=== PATIENT | female | born 1960 | race Caucasian/White ===

== ENCOUNTER → 2016-07-30 | Outpatient (CLI) | payer BC ==
--- NOTE | 2016-07-30 13:01 | US ---
EXAMINATION TYPE: US venous doppler duplex LE RT DATE OF EXAM: 07/30/2016 12:48 PM COMPARISON: NONE CLINICAL HISTORY: M25.571 PAIN IN RT ANKLE AND JOINTS OF RT FOOT. Pain, warmness right lower leg. Rig ht Achilles tendon surgery 05/28 SIDE PERFORMED: Right VESSELS IMAGED: External Iliac Vein (EIV) Common Femoral Vein Deep Femoral Vein Greater Saphenous Vein * Femoral Vein Popliteal Vein Small Saphenous Vein * Proximal Calf Veins (* superficial vessels) TECHNOLOGIST IMPRESSION: Right Leg: No evidence of DVT Satisfactory color flow, phasicity, and compressibility seen in the right lower extremity at the abov e venous levels. IMPRESSION: No ultrasound evidence for acute DVT in the right lower extremity.
== END ==
LOC: RADUSWWP 12:14
PROVIDERS: ATTEND Orthopaedic Surgery
DX: I80.9 Phlebitis and thrombophlebitis of unspecified site (principal)

== ENCOUNTER → 2016-09-19 | Outpatient (CLI) | payer BC ==
--- NOTE | 2016-09-19 13:01 | MR ---
MR brain and orbits with and without contrast HISTORY: Migraine headaches, retrobulbar neuritis Multiplanar multisequence and postcontrast images obtained through the brain and orbits following 18 cc MultiHance IV Correlation to CT brain 16 January 2015 There is no restricted diffusion within the brain to suggest subacute ischemia. The corpus callosum, cervical medullary junction, cerebellopontine angles are within normal limits. There is a partially e mpty sella. There are normal vascular flow voids. 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 No abnormal enhancement following contrast admi nistration. Brain signal is maintained. Probable hemangioma in the left frontal calvarium axial image 24 measuring 14 mm area The orbits show motion. The globes show a somewhat oval appearance. No abnormal enhancement. There is a symmetric appearance. Extraocular muscles are unremarkable, optic nerves show a symmetric appearan ce. IMPRESSION: Nonspecific findings above. No significant abnormalities evident.
== END | disposition home or self-care (01) ==
LOC: RADMRIMAIN 08:06
PROVIDERS: ATTEND Ophthalmology
DX: H46.10 Retrobulbar neuritis, unspecified eye (principal); G43.809 Other migraine, not intractable, without status migrainosus
CPT/HCPCS: 70543; 70553; A9577

== ENCOUNTER → 2017-06-18 | Outpatient (CLI) | payer BC ==
[2017-06-18 17:16] LABS: Alternaria alternata IgE <0.10 kU/L; Birch IgE <0.10 kU/L; Cat Epith & Dander IgE <0.10 kU/L; Clam IgE <0.10 kU/L; Cockroach IgE <0.10 kU/L; Codfish IgE <0.10 kU/L; Dermato. farinae IgE <0.10 kU/L; Dog Dander IgE <0.10 kU/L; Egg White IgE <0.10 kU/L; Elm IgE <0.10 kU/L; Maple (Box Elder) IgE <0.10 kU/L; Oak IgE <0.10 kU/L; Peanut IgE <0.10 kU/L; Ragweed,Common IgE <0.10 kU/L; Red Top (Bentgrass) IgE <0.10 kU/L; Scallop IgE <0.10 kU/L; Shrimp IgE <0.10 kU/L; Soybean IgE <0.10 kU/L; Walnut IgE (Food) <0.10 kU/L
== END | disposition home or self-care (01) ==
LOC: LABWHC1 11:00
PROVIDERS: ATTEND Internal Medicine Critical Care Medicine
DX: J45.909 Unspecified asthma, uncomplicated (principal)
CPT/HCPCS: 36415; 82785; 86003

== ENCOUNTER → 2017-09-10 | Outpatient (CLI) | payer BC ==
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
== END | disposition home or self-care (01) ==
LOC: PNWHC3 11:57
PROVIDERS: ATTEND Specialist
DX: G47.33 Obstructive sleep apnea (adult) (pediatric) (principal); M54.2 Cervicalgia; M47.22 Other spondylosis with radiculopathy, cervical region; M25.511 Pain in right shoulder; J45.909 Unspecified asthma, uncomplicated; E11.9 Type 2 diabetes mellitus without complications; Z79.1 Long term (current) use of non-steroidal anti-inflammatories (NSAID); Z79.899 Other long term (current) drug therapy; Z90.49 Acquired absence of other specified parts of digestive tract; Z98.890 Other specified postprocedural states; Z79.891 Long term (current) use of opiate analgesic; Z79.84 Long term (current) use of oral hypoglycemic drugs; Z79.82 Long term (current) use of aspirin; Z79.52 Long term (current) use of systemic steroids
CPT/HCPCS: 99211

== ENCOUNTER 2017-09-12 06:18 | Day surgery (SDC) | payer BC ==
[2017-09-12 06:33] VITALS: TEMP 98
[2017-09-12] MEDS ORDERED: LIDOCAINE 1% 20 ML VIAL (10MG/ML) FOR IV START INTRADERMA ONE (06:35)
[2017-09-12] MEDS ORDERED: LACTATED RINGERS 1,000 ML IV ONE (06:36)
--- NOTE | 2017-09-12 07:22 | P.OP ---
Date of Procedure: 09/12/17 Surgeon: Hang Dodge Description of Procedure: . PROCEDURE 1. Cervical epidural steroid injection under fluoroscopic guidance, C7-T1 PREOPERATIVE DIAGNOSIS: 1. Cervical Radiculopathy 2. Cervical Degenerative Disc Disease POSTOPERATIVE DIAGNOSIS: : 1. Cervical Radiculopathy 2. Cervical Degenerative Disc Disease ANESTHESIA: Local anesthesia with 1% lidocaine and IV sedation with Versed 2 mg EBL: minimal PROCEDURE INDICATION: The patient with neck pain and radiculitis unresponsive to conservative treatment consents for procedure. She has pain in her neck bilaterally as well pain that radiates into her right arm down to her forearm on the right side. PROCEDURE DESCRIPTION / TECHNIQUE: The patient was seen and identified in the preoperative area. Risks, benefits, complications, including but not limited to infections ,bleeding , allergic reactions to the medications , failure to relieve pain and increase in pain. Alternatives were discussed with the patient , the patient agreed to proceed with the procedure and signed the consent. Patient was taken to the OR and time out was completed. The patient was placed in the prone position on the procedure table. A pillow was placed under the patients chest to increase the cervical interlaminar space. The cervical area was prepped and draped in the usual sterile fashion. Vital signs were closely monitored during the procedure. Conscious sedation was used during the procedure to decrease patients anxiety. Using anterior-posterior fluoroscopy, the C7-T1 interlaminar space was identified and the skin over this site was marked and then infiltrated with 1% lidocaine subcutaneously. Subsequently, a 20-gauge 3-1/2-inch Tuohy epidural needle was inserted and advanced toward the epidural space by means of the loss of resistance technique and guided by AP and lateral fluoroscopy. The correct needle position in the epidural space was verified in the AP and lateral projection. After negative aspiration, mixture containing 20 mg Dexamethasone and 2 ml of preservative-free normal saline injected Needle was withdrawn intact, skin was cleansed, and bandages were applied. Complications= none. Disposition= patient was placed in supine position and transferred to the recovery room area in stable condition and there was no evidence of upper or lower extremity motor or sensory deficit after the procedure patient was discharged from recovery room after discharge criteria met and home discharge instructions was given by the staff and patient will follow up for repeat of MAR in 2-4 weeks
[2017-09-12] MEDS ORDERED: IV FLUID CONTINUATION 1,000 ML IV ONE (07:46)
[2017-09-12 07:49] VITALS: RESP 16
[2017-09-12 07:55] VITALS: BP 155/76; PULSE 83
--- NOTE | 2017-09-12 09:13 | FL ---
EXAMINATION TYPE: FL guided pain mgmt statistic DATE OF EXAM: 09/12/2017 COMPARISON: NONE HISTORY: Neck pain TECHNIQUE: Fluoroscopy. FINDINGS/IMPRESSION: Fluoroscopic guidance was provided during procedure performed by Dr. Dodge. A total of 2 seconds of fluoroscopic time was utilized during the procedure and 1 spot images was acqu ired demonstrating localization of the cervical spine.
== END 2017-09-12 08:06 | disposition home or self-care (01) ==
LOC: ORPAIN 06:18
PROVIDERS: ATTEND Pain Medicine Pain Medicine
DX: G89.29 Other chronic pain (principal); M47.22 Other spondylosis with radiculopathy, cervical region; J45.909 Unspecified asthma, uncomplicated; E11.9 Type 2 diabetes mellitus without complications; Z90.49 Acquired absence of other specified parts of digestive tract; Z79.899 Other long term (current) drug therapy; Z79.82 Long term (current) use of aspirin; Z79.1 Long term (current) use of non-steroidal anti-inflammatories (NSAID); Z88.8 Allergy status to other drugs, medicaments and biological substances; Z79.84 Long term (current) use of oral hypoglycemic drugs
CPT/HCPCS: 62321; J1100

== ENCOUNTER → 2017-10-02 | Day surgery (SDC) | payer BC ==
[2017-09-26 12:11] VITALS: BMI 32.5
[~2017-10-02] MED LIST: LACTATED RINGERS 1,000 ML IV ONE; LACTATED RINGERS 1,000 ML IV SCH; LIDOCAINE 1% 20 ML VIAL (10MG/ML) FOR IV START INTRADERMA ONE
[2017-10-02 09:02] VITALS: BP 151/81; PULSE 74; RESP 16; TEMP 97.7
[2017-10-02 09:15] LABS: Glucose,Whole Blood 123 mg/dL (75-99)
--- NOTE | 2017-10-02 09:52 | P.PN ---
Progress Note - Text Progress Note Date: 10/02/17 The patient presented today for repeat of cervical epidural steroid injection. Upon further evaluation in the preoperative area, it was determined that she had significant increase in pressure and migraines which began about 4 days after her last procedure. These continued today. Although she has a long- standing history of migraines, she has not had any for 1-1/2 years. She also complains of significant pressure in her shoulder isn't well as numbness in her right hand. She does report that the pain symptoms she was having the procedure done for are better after the injection. Given the intensity of migraines that she is experiencing after this procedure as well as increase in pressure, I think it is reasonable to order a cervical spine MRI. It is been 4 years since her last evaluation. Physical examination today she demonstrates no focal motor deficits or sensory deficits.
== END ==
LOC: ORPAIN 07:04
PROVIDERS: ATTEND Pain Medicine Pain Medicine
DX: G43.909 Migraine, unspecified, not intractable, without status migrainosus (principal); Z53.8 Procedure and treatment not carried out for other reasons; M54.2 Cervicalgia

== ENCOUNTER → 2017-10-19 | Outpatient (CLI) | payer BC ==
--- NOTE | 2017-10-19 11:47 | MR ---
EXAMINATION TYPE: MR cervical spine wo con DATE OF EXAM: 10/19/2017 COMPARISON: 03/23/2014 HISTORY: Cervical radiculopathy TECHNIQUE: Multiplanar, multisequence images of the cervical spine were acquired. C2-C3: No evidence for degenerative disc disease. No disc bulge/herniation or protrusion. No Canal stenosis. Foramina are patent bilaterally. C3-C4: No evidence for degenerative disc disease. No disc bulge/herniation or protrusion. No Canal stenosis. Foramina are patent bilaterally. C4-C5: No evidence for degenerative disc disease. No disc bulge/herniation or protrusion. No Canal stenosis. Foramina are patent bilaterally. C5-C6: No canal stenosis or foraminal encroachment. Very minimal central and right paracentral disc b ulging. No spinal cord contact. C6-C7: Broad-based central disc bulging with mild to moderate thecal sac compression is stable. No fo raminal encroachment. No Canal stenosis. C7-T1: No evidence for degenerative disc disease. No disc bulge/herniation or protrusion. No Canal stenosis. Foramina are patent bilaterally. Cervical segments are intact. There is normal alignment. Cervical spinal cord is of normal signal. Craniovertebral junction relationships are within normal limits. IMPRESSION: 1. Multilevel mild degenerative disc disease. Disc bulging previously noted at C6/C7 appears less imp ressive on today's exam mild to moderate effacement of thecal sac but no spinal cord contact.
== END | disposition home or self-care (01) ==
LOC: RADMRIMAIN 09:01
PROVIDERS: ATTEND Pain Medicine Pain Medicine
DX: M50.10 Cervical disc disorder with radiculopathy, unspecified cervical region (principal)
CPT/HCPCS: 72141

== ENCOUNTER → 2017-11-25 | Outpatient (CLI) | payer BC ==
[2017-11-25 13:36] VITALS: BP 170/79; PULSE 91; RESP 18
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
== END | disposition home or self-care (01) ==
LOC: PNWHC3 12:08
PROVIDERS: ATTEND Anesthesiology
DX: G89.29 Other chronic pain (principal); M54.2 Cervicalgia
CPT/HCPCS: 99211

== ENCOUNTER → 2018-03-12 | Outpatient (CLI) | payer BC ==
--- NOTE | 2018-03-14 10:12 | MM ---
Reason for exam: screening (asymptomatic). Last mammogram was performed 3 years and 5 months ago. History: Patient is postmenopausal. Taking estrogen for 1 year 6 months. Physical Findings: A clinical breast exam by your physician is recommended on an annual basis and results should be correlated with mammographic findings. MG 3D Screening Mammo W/Cad Bilateral CC and MLO view(s) were taken. Prior study comparison: October 11, 2014, bilateral MG screening mammo w CAD. September 15, 2013, mammogram, performed at [facility]. There are scattered fibroglandular densities. Focal asymmetry. This finding is changed when compared with previous exams. ASSESSMENT: Incomplete: need additional imaging evaluation, BI-RAD 0 RECOMMENDATION: Special view mammogram of the left breast. If lesion persists on supplemental views, image directed ultrasound is recommended. [facility] will attempt to contact patient to return for supplemental views and ultrasound if indicated.
== END | disposition home or self-care (01) ==
LOC: RADMAMWWP 16:04
PROVIDERS: ATTEND Family Medicine
DX: Z12.31 Encounter for screening mammogram for malignant neoplasm of breast (principal)
CPT/HCPCS: 77063; 77067

== ENCOUNTER → 2018-03-18 | Outpatient (CLI) | payer BC ==
--- NOTE | 2018-03-19 08:01 | MM ---
Reason for exam: additional evaluation requested from abnormal screening. Last mammogram was performed less than 1 month ago. History: Patient is postmenopausal. Took estrogen for 3 years beginning at age 45. Physical Findings: Nurse did not find any significant physical abnormalities on exam. MG 3D Work Up W/Cad LT CC and MLO view(s) were taken of the left breast. Prior study comparison: March 12, 2018, bilateral MG 3d screening mammo w/cad. October 11, 2014, bilateral MG screening mammo w CAD. The breast tissue is heterogeneously dense. This may lower the sensitivity of mammography. There is no discrete abnormality. These results were verbally communicated with the patient and result sheet given to the patient on 03/18/18. ASSESSMENT: Probably benign, BI-RAD 3 RECOMMENDATION: Follow-up diagnostic mammogram of the left breast in 6 months.
== END | disposition home or self-care (01) ==
LOC: RADMAMWWP 14:54
PROVIDERS: ATTEND Family Medicine
DX: R92.8 Other abnormal and inconclusive findings on diagnostic imaging of breast (principal)
CPT/HCPCS: 77061; 77065

== ENCOUNTER 2019-02-19 19:39 | Emergency (ER) | payer BC ==
[2019-02-19] MEDS ORDERED: TOPICAL SKIN ADHESIVE 1 EACH AMP TOPICAL ONE (21:00)
--- NOTE | 2019-02-19 21:48 | ED ---
General Adult HPI - General Chief complaint: Extremity Problem,Nontraumatic Stated complaint: LEFT LEG BLEEDING, BROKEN VEIN Time Seen by Provider: 02/19/19 21:00 Source: patient Mode of arrival: ambulatory Limitations: no limitations - History of Present Illness Initial comments: 58-year-old female patient presents to the emergency department today for evaluation of bleeding vessel to the left lower leg. Patient states she was standing in the bathroom when she noticed her foot was wet, she looked down and was standing in a pool of blood. Patient noticed any vessel from the lower posterior left leg was bleeding. States she did hold pressure was able to get the bleeding to stop. She is concerned the bleeding may start again and so she presented here for further evaluation. She denies any injury to the leg. States she does have some varicose veins. She denies any use of anticoagulants or antiplatelet medications. States that she felt as though she lost quite a bit of blood. She denies any weakness or dizziness. Patient denies any recent rash, fever, chills, shortness breath, chest pain, abdominal pain, nausea, vomiting, diarrhea, constipation, back pain, numbness, tingling, hematuria, dysuria, urinary urgency, urinary frequency, headache, visual changes, or any other complaints. - Related Data Home Medications Medication Instructions Recorded Confirmed Atorvastatin [Lipitor] 10 mg PO HS 02/28/14 02/19/19 Lansoprazole [Prevacid] 30 mg PO AC-SUPPER 09/10/17 02/19/19 DULoxetine HCL [Cymbalta] 90 mg PO AC-SUPPER 11/25/17 02/19/19 Levothyroxine Sodium [Synthroid] 137 mcg PO DAILY 11/25/17 02/19/19 cloNIDine HCL [Catapres] 0.1 mg PO HS 02/19/19 02/19/19 Allergies Allergy/AdvReac Type Severity Reaction Status Date / Time IV steroids AdvReac TOOK Uncoded 02/19/19 20:58 PROTIEN OUT OF BODY Review of Systems ROS Statement: Those systems with pertinent positive or pertinent negative responses have been documented in the HPI. ROS Other: All systems not noted in ROS Statement are negative. Past Medical History Past Medical History: Asthma, Fibromyalgia, GERD/Reflux, Thyroid Disorder History of Any Multi-Drug Resistant Organisms: None Reported Past Surgical History: Cholecystectomy, Hysterectomy, Orthopedic Surgery, Tonsillectomy Additional Past Surgical History / Comment(s): RT FOOT SX. PAIN CLINIC PROCEDURES. RT KNEE SCOPE. COLONOSCOPY Past Anesthesia/Blood Transfusion Reactions: No Reported Reaction Past Psychological History: No Psychological Hx Reported Smoking Status: Never smoker Past Alcohol Use History: None Reported Past Drug Use History: None Reported - Past Family History Father Family Medical History: Cancer Brother(s) Family Medical History: Cancer General Exam Limitations: no limitations General appearance: alert, in no apparent distress, other (Physical well- developed, well-nourished adult female patient in no acute distress. Vital signs upon presentation are temperature 98.5F, pulse 1:30, respirations 16, blood pressure 114/74, pulse ox 98% on room air.) Respiratory exam: Present: normal lung sounds bilaterally. Absent: respiratory distress, wheezes, rales, rhonchi, stridor Cardiovascular Exam: Present: regular rate, normal rhythm, normal heart sounds. Absent: systolic murmur, diastolic murmur, rubs, gallop, clicks Extremities exam: Present: full ROM, normal capillary refill, other (There is small scabbed vessel noted to the left lower posterior leg. No active bleeding. Surrounding tissue is pink, warm, dry. Cap refills less than 3 seconds. ). Absent: normal inspection, tenderness, pedal edema, joint swelling, calf tenderness Neurological exam: Present: alert, oriented X3, CN II-XII intact Psychiatric exam: Present: normal affect, normal mood Skin exam: Present: warm, dry, intact, normal color. Absent: rash Course Vital Signs 02/19/19 02/19/19 19:41 22:00 Temperature 98.5 F 98.4 F Pulse Rate 130 H 103 H Respiratory 16 20 Rate Blood Pressure 114/74 117/86 O2 Sat by Pulse 98 99 Oximetry Procedures - Laceration Laceration #1 Indication: other (Bleeding varicose vein) Site: lower extremity (left) Type of Sutures: other (exofin skin adhesive) Patient Tolerated Procedure: well, no complications Medical Decision Making - Medical Decision Making 58 year-old female patient presented to the emergency department today for evaluation of bleeding vessel to the left lower leg. Physical examination did reveal scabbed lesions to the left posterior lower leg. Did cleanse the area and cover with exofin skin adhesive to prevent rebleeding. Patient be discharged. Her primary care physician for recheck in 1-2 days. Return parameters discussed in detail. She verbalizes understanding and agrees with this plan. Disposition Clinical Impression: Bleeding from varicose vein Disposition: HOME SELF-CARE Condition: Good Instructions (If sedation given, give patient instructions): Skin Adhesive Care (ED) Additional Instructions: Do not pick or pull at glue. Do not apply oil based ointment or soaps. Monitor for further bleeding, if it starts hold pressure for at least 20 minutes. Follow up with your primary care physician for further evaluation in 1-2 days. Return to the emergency department for any new, worsening, or concerning symptoms. Is patient prescribed a controlled substance at d/c from ED?: No Referrals: Isabelle Ferrell DO [Primary Care Provider] - 1-2 days Time of Disposition: 21:48
[2019-02-19 22:01] VITALS: BP 117/86; PULSE 103; RESP 20; TEMP 98.4
== END 2019-02-19 22:01 | disposition home or self-care (01) ==
LOC: EC 19:39
DX: I83.892 Varicose veins of left lower extremity with other complications (principal); E07.9 Disorder of thyroid, unspecified; M79.7 Fibromyalgia; Z79.890 Hormone replacement therapy; Z79.899 Other long term (current) drug therapy; Z98.890 Other specified postprocedural states; Z88.8 Allergy status to other drugs, medicaments and biological substances
CPT/HCPCS: 12001; 99283

== ENCOUNTER 2019-02-23 08:18 | Emergency (ER) | payer BC ==
[2019-02-23] MEDS ORDERED: MORPHINE SULFATE 4 MG/ML SYRINGE IM STA (08:36)
[2019-02-23] MEDS ORDERED: LIDOCAINE 1%-EPI 1:100,000 20 ML VIAL SQ STA (08:36)
--- NOTE | 2019-02-23 08:40 | ED ---
General Adult HPI - General Chief complaint: Recheck/Abnormal Lab/Rx Stated complaint: POSS INFECTION LEFT LEG Time Seen by Provider: 02/23/19 08:25 Source: patient Mode of arrival: ambulatory Limitations: no limitations - History of Present Illness Initial comments: The patient is a 58-year-old female who was recently seen in the emergency department for a ruptured varicose vein. On the patient reports that she had a varicose vein that ruptured at home in her bathroom. There was significant amount of bleeding from the site. She came into the emergency department and had Dermabond placed over the top of it. She reports that since then she has had a "bubble" that has formed on her left lower posterior calf. It is increasing in size by the day. The surrounding tissue is warm to touch. She takes Ultram at home as needed for pain control and states this has not been touching her pain. She denies any fevers or chills. No nausea or vomiting. There is some mild swelling of the ankle. Patient is not on any blood thinners. No history of DVT or PE. No recent travel or surgery. No exogenous hormone use. Denies trauma to the site. There are no other alleviating, precipitating or modifying factors - Related Data Home Medications Medication Instructions Recorded Confirmed Lansoprazole [Prevacid] 30 mg PO BID 09/10/17 02/23/19 DULoxetine HCL [Cymbalta] 30 mg PO TID 11/25/17 02/23/19 Levothyroxine Sodium [Synthroid] 137 mcg PO DAILY 11/25/17 02/23/19 cloNIDine HCL [Catapres] 0.1 mg PO HS 02/19/19 02/23/19 Atorvastatin [Lipitor] 10 mg PO HS 02/23/19 02/23/19 Sennosides/Docusate Sodium 1 tab PO BID PRN 02/23/19 02/23/19 [Senna-S Laxative Tablet] Terbinafine [LamISIL] 250 mg PO DAILY 02/23/19 02/23/19 traMADol HCL [Ultram] 50 mg PO BID PRN 02/23/19 02/23/19 Previous Rx's Medication Instructions Recorded Cephalexin [Keflex] 500 mg PO Q6HR #28 cap 02/23/19 Fluconazole [Diflucan] 150 mg PO ONCE #3 tab 02/23/19 Sulfamethox-Tmp 800-160Mg [Bactrim 2 tab PO Q12HR #28 tab 02/23/19 Ds] Allergies Allergy/AdvReac Type Severity Reaction Status Date / Time IV steroids AdvReac TOOK Uncoded 02/23/19 08:56 PROTIEN OUT OF BODY Review of Systems ROS Statement: Those systems with pertinent positive or pertinent negative responses have been documented in the HPI. ROS Other: All systems not noted in ROS Statement are negative. Past Medical History Past Medical History: Asthma, Fibromyalgia, GERD/Reflux, Thyroid Disorder History of Any Multi-Drug Resistant Organisms: None Reported Past Surgical History: Cholecystectomy, Hysterectomy, Orthopedic Surgery, Tonsillectomy Additional Past Surgical History / Comment(s): RT FOOT SX. PAIN CLINIC PROCEDURES. RT KNEE SCOPE. COLONOSCOPY Past Anesthesia/Blood Transfusion Reactions: No Reported Reaction Past Psychological History: No Psychological Hx Reported Smoking Status: Never smoker Past Alcohol Use History: None Reported Past Drug Use History: None Reported - Past Family History Father Family Medical History: Cancer Brother(s) Family Medical History: Cancer General Exam Limitations: no limitations General appearance: alert, in no apparent distress Respiratory exam: Present: normal lung sounds bilaterally. Absent: respiratory distress, wheezes, rales, rhonchi Cardiovascular Exam: Present: regular rate, normal rhythm Course Vital Signs 02/23/19 02/23/19 08:22 09:29 Temperature 98.2 F 98.6 F Pulse Rate 94 70 Respiratory 20 18 Rate Blood Pressure 126/68 120/82 O2 Sat by Pulse 98 100 Oximetry Medical Decision Making - Medical Decision Making Upon arrival the patient is placed in room 4. A thorough history and physical exam was obtained. Examination of the patient's posterior calf does reveal an area of fluctuance with surrounding induration. I did recommend draining the lesion as I do believe it is filled with pus. The patient does agree to this. I did use approximately 4 mL of 1% lidocaine with epinephrine and injected it in the subcutaneous tissues. Adequate analgesia was obtained. I then used in [address] a small cut into the fluctuant area skin. I drained approximately 5 mL of purulent drainage. Gauze was placed over the site wrapped in Kerlix. I did recommend treating the patient for cellulitis for which he did agree. I will place the patient on Keflex and Bactrim. She is given follow-up information from the wound center. Culture was obtained and sent to the lab. She must follow-up with her primary care physician within 2-4 days. If there are any new or worsening symptoms she should return to the emergency room. The patient was then discharged home in stable condition Disposition Clinical Impression: Bleeding from varicose vein, Abscess Disposition: HOME SELF-CARE Instructions (If sedation given, give patient instructions): Abscess Incision and Drainage (ED), Abscess (ED) Additional Instructions: Please follow-up with the wound care clinic and your primary care physician for reevaluation of your wound. Return to the emergency department if you have any new or worsening symptoms Prescriptions: Sulfamethox-Tmp 800-160Mg [Bactrim Ds] 2 tab PO Q12HR #28 tab Fluconazole [Diflucan] 150 mg PO ONCE #3 tab Cephalexin [Keflex] 500 mg PO Q6HR #28 cap Is patient prescribed a controlled substance at d/c from ED?: No Referrals: Isabelle Ferrell DO [Primary Care Provider] - 1-2 days [facility] [NON-STAFF] - 1-2 days Time of Disposition: 09:16
[2019-02-23 09:32] VITALS: BP 120/82; PULSE 70; RESP 18; TEMP 98.6
== END 2019-02-23 09:31 | disposition home or self-care (01) ==
LOC: EC 08:18
DX: L02.416 Cutaneous abscess of left lower limb (principal); I83.892 Varicose veins of left lower extremity with other complications; K21.9 Gastro-esophageal reflux disease without esophagitis; M79.7 Fibromyalgia; E07.9 Disorder of thyroid, unspecified; Z90.49 Acquired absence of other specified parts of digestive tract; Z90.710 Acquired absence of both cervix and uterus; Z98.890 Other specified postprocedural states; Z79.890 Hormone replacement therapy; Z79.899 Other long term (current) drug therapy; Z88.8 Allergy status to other drugs, medicaments and biological substances
CPT/HCPCS: 87070; 87205; 87077; 87186; 99283; 10060; 96372; J2270

== ENCOUNTER 2019-03-01 13:30 | Observation (INO) | payer BC ==
[2019-03-01] MEDS ORDERED: SODIUM CHLORIDE 0.9% 500 ML 500 ML IV STA (13:51)
[2019-03-01] MEDS ORDERED: ONDANSETRON 4 MG/2 ML VIAL IVP STA (13:51)
[2019-03-01 13:56] LABS: Glucose,Whole Blood 141 mg/dL (75-99)
--- NOTE | 2019-03-01 14:00 | ED ---
General Adult HPI - General Chief complaint: Neuro Symptoms/Deficit Stated complaint: Vomiting, rt hand numbess Time Seen by Provider: 03/01/19 13:40 Source: patient Mode of arrival: wheelchair Limitations: no limitations - History of Present Illness Initial comments: Dictation was produced using [employer] dictation software. please excuse any grammatical, word or spelling errors. Chief Complaint: 58-year-old female presents with left facial paresthesias and left upper extremity paresthesias since 11 AM. History of Present Illness: Patient is a 58-year-old female she has past medical history of fibromyalgia, hypertension and asthma. Patient states she is had acute strokelike symptoms since 11 AM. Patient was at work when she began experiencing left facial left upper extremity numbness. Proximal to 1 week ago patient was bit by a spider. She was seen at the wound center and is being treated for possible brown recluse spider bite. She was recently started on Bactrim. She has no other medication changes. She does have a history of fibromyalgia. Patient complains of paresthesias to the left upper face or left lower face and left upper extremity. She does not feel weak. Patient also feels nauseous. She denies any abdominal pain or chest pain. Patient states she's had Bactrim before without any adverse reactions. Patient has a history of stroke or TIA. She states that the paresthesias to her left upper extremity extending from her fingers to her elbow circumferentially. The ROS documented in this emergency department record has been reviewed and confirmed by me. Those systems with pertinent positive or negative responses have been documented in the HPI. All other systems are other negative and/or noncontributory. PHYSICAL EXAM: General Impression: Alert and oriented x3, not in acute distress HEENT: Normocephalic atraumatic, extra-ocular movements intact, pupils equal and reactive to light bilaterally, mucous membranes moist. Cardiovascular: Heart regular rate and rhythm, S1&S2 audible, no murmurs, rubs or gallops Chest: Lungs clear to auscultation bilaterally, no rhonchi, no wheeze, no rales Abdomen: Bowel sounds present, abdomen soft, non-tender, non-distended, no organomegaly Musculoskeletal: Pulses present and equal in all extremities, no peripheral edema Motor: no focal deficits noted Neurological: CN II-XII grossly intact, no focal motor or sensory deficits noted , abnormal sensation to light touch of the left upper extremity extending from the fingers to the elbow region, left upper face left lower face. No aphasia. NIH of 2 Skin: Intact with no visualized rashes Psych: Normal affect and mood ED course:58-year-old female presents with strokelike symptoms since 11 AM. Eric stroke was paged. Patient's given a NIH of 2 for the paresthesias in the face in the upper extremity. Vital signs upon arrival are within acceptable limits. Discussed patient case with Dr. Yan arias stroke doctor recommends no TPA at this time.Laboratory evaluation obtained. CBC, coag panel, metabolic panels obtained. Patient has anion gap acidosis with potassium 3.1. Is unclear what this acidosis is from. Medications were reviewed with no overt cause. Patient has been vomiting. Is concerned that maybe this is from starvation acidosis versus acid loss from emesis. Rest metabolic panel is grossly unremarkable. Computed tomography scan of the brain and brain CT is unremarkable. X-rays unremarkable Patient given aspirin. Discussed patient case with Dr. Carrillo was went except patient care. Neurology is not available currently. However per request by Dr. Carrillo a message was sent to neurologist will be working tomorrow Dr. Piña. Patient clinically stable she reports improvement of her symptoms while being in the hospital. I feel there is no indication for patient to be transferred to facility where there is currently neurologist given that we will have neurology coverage tomorrow. EKG interpretation: Ventricular rate 105, sinus tachycardia, NJ interval 132, care is 92, QTc 465. No NJ prolongation, no QTC prolongation, no ST or T-wave changes noted. . Overall, this EKG is unremarkable - Related Data Home Medications Medication Instructions Recorded Confirmed Lansoprazole [Prevacid] 30 mg PO BID 09/10/17 03/01/19 DULoxetine HCL [Cymbalta] 30 mg PO TID 11/25/17 03/01/19 Levothyroxine Sodium [Synthroid] 137 mcg PO DAILY 11/25/17 03/01/19 cloNIDine HCL [Catapres] 0.1 mg PO HS 02/19/19 03/01/19 Terbinafine [LamISIL] 250 mg PO DAILY 02/23/19 03/01/19 traMADol HCL [Ultram] 50 mg PO BID PRN 02/23/19 03/01/19 Atorvastatin [Lipitor] 40 mg PO HS 03/01/19 03/01/19 Previous Rx's Medication Instructions Recorded Sulfamethox-Tmp 800-160Mg [Bactrim 2 tab PO Q12HR #28 tab 02/23/19 Ds] Allergies Allergy/AdvReac Type Severity Reaction Status Date / Time IV steroids AdvReac TOOK Uncoded 03/01/19 13:55 PROTIEN OUT OF BODY Review of Systems ROS Statement: Those systems with pertinent positive or pertinent negative responses have been documented in the HPI. ROS Other: All systems not noted in ROS Statement are negative. Past Medical History Past Medical History: Asthma, Fibromyalgia, GERD/Reflux, Thyroid Disorder History of Any Multi-Drug Resistant Organisms: None Reported Past Surgical History: Cholecystectomy, Hysterectomy, Orthopedic Surgery, Tonsillectomy Additional Past Surgical History / Comment(s): RT FOOT SX. PAIN CLINIC PROCEDURES. RT KNEE SCOPE. COLONOSCOPY Past Anesthesia/Blood Transfusion Reactions: No Reported Reaction Past Psychological History: No Psychological Hx Reported Smoking Status: Never smoker Past Alcohol Use History: None Reported Past Drug Use History: None Reported - Past Family History Father Family Medical History: Cancer Brother(s) Family Medical History: Cancer General Exam Limitations: no limitations Course Vital Signs 03/01/19 03/01/19 03/01/19 13:36 13:50 14:05 Temperature 97.5 F L 97.8 F 97.9 F Pulse Rate 98 101 H 96 Respiratory 16 22 18 Rate Blood Pressure 100/58 129/58 123/63 O2 Sat by Pulse 100 99 100 Oximetry 03/01/19 03/01/19 14:20 14:35 Temperature 97.7 F 97.9 F Pulse Rate 93 95 Respiratory 18 18 Rate Blood Pressure 125/65 121/61 O2 Sat by Pulse 100 100 Oximetry Medical Decision Making - Lab Data Result diagrams: 03/01/19 13:50 03/01/19 13:50 Lab Results 03/01/19 03/01/19 03/01/19 Range/Units 13:50 13:50 13:50 WBC 8.5 (3.8-10.6) k/uL RBC 3.85 (3.80-5.40) m/uL Hgb 12.1 (11.4-16.0) gm/dL Hct 34.8 (34.0-46.0) % MCV 90.5 (80.0-100.0) fL MCH 31.5 (25.0-35.0) pg MCHC 34.8 (31.0-37.0) g/dL RDW 13.3 (11.5-15.5) % Plt Count 392 (150-450) k/uL Neutrophils % 76 % Lymphocytes % 14 % Monocytes % 5 % Eosinophils % 1 % Basophils % 1 % Neutrophils # 6.4 (1.3-7.7) k/uL Lymphocytes # 1.2 (1.0-4.8) k/uL Monocytes # 0.4 (0-1.0) k/uL Eosinophils # 0.1 (0-0.7) k/uL Basophils # 0.1 (0-0.2) k/uL PT (9.0-12.0) sec INR (<1.2) APTT (22.0-30.0) sec Sodium 141 (137-145) mmol/L Potassium 3.1 L (3.5-5.1) mmol/L Chloride 105 (98-107) mmol/L Carbon Dioxide 16 L (22-30) mmol/L Anion Gap 20 mmol/L BUN 10 (7-17) mg/dL Creatinine 1.01 (0.52-1.04) mg/dL Est GFR (CKD-EPI)AfAm 71 (>60 ml/min/1.73 sqM) Est GFR (CKD-EPI)NonAf 61 (>60 ml/min/1.73 sqM) Glucose 141 H (74-99) mg/dL POC Glucose (mg/dL) (75-99) mg/dL POC Glu Assistant Front Desk Manager ID Calcium 10.0 (8.4-10.2) mg/dL Total Bilirubin 0.5 (0.2-1.3) mg/dL AST 28 (14-36) U/L ALT 31 (9-52) U/L Alkaline Phosphatase 167 H (38-126) U/L Total Creatine Kinase 92 (30-135) U/L CK-MB (CK-2) 2.8 H (0.0-2.4) ng/mL CK-MB (CK-2) Rel Index 3.0 Troponin I <0.012 (0.000-0.034) ng/mL Total Protein 7.2 (6.3-8.2) g/dL Albumin 4.4 (3.5-5.0) g/dL 03/01/19 03/01/19 Range/Units 13:50 13:54 WBC (3.8-10.6) k/uL RBC (3.80-5.40) m/uL Hgb (11.4-16.0) gm/dL Hct (34.0-46.0) % MCV (80.0-100.0) fL MCH (25.0-35.0) pg MCHC (31.0-37.0) g/dL RDW (11.5-15.5) % Plt Count (150-450) k/uL Neutrophils % % Lymphocytes % % Monocytes % % Eosinophils % % Basophils % % Neutrophils # (1.3-7.7) k/uL Lymphocytes # (1.0-4.8) k/uL Monocytes # (0-1.0) k/uL Eosinophils # (0-0.7) k/uL Basophils # (0-0.2) k/uL PT 9.6 (9.0-12.0) sec INR 0.9 (<1.2) APTT 22.6 (22.0-30.0) sec Sodium (137-145) mmol/L Potassium (3.5-5.1) mmol/L Chloride (98-107) mmol/L Carbon Dioxide (22-30) mmol/L Anion Gap mmol/L BUN (7-17) mg/dL Creatinine (0.52-1.04) mg/dL Est GFR (CKD-EPI)AfAm (>60 ml/min/1.73 sqM) Est GFR (CKD-EPI)NonAf (>60 ml/min/1.73 sqM) Glucose (74-99) mg/dL POC Glucose (mg/dL) 141 H (75-99) mg/dL POC Glu Assistant Front Desk Manager ID Juliet Sutton Calcium (8.4-10.2) mg/dL Total Bilirubin (0.2-1.3) mg/dL AST (14-36) U/L ALT (9-52) U/L Alkaline Phosphatase (38-126) U/L Total Creatine Kinase (30-135) U/L CK-MB (CK-2) (0.0-2.4) ng/mL CK-MB (CK-2) Rel Index Troponin I (0.000-0.034) ng/mL Total Protein (6.3-8.2) g/dL Albumin (3.5-5.0) g/dL Disposition Clinical Impression: Transient cerebral ischemia Disposition: ADMITTED IP TO THIS HOSP Condition: Fair Referrals: Isabelle Ferrell DO [Primary Care Provider] - 1-2 days Decision Time: 15:30
[2019-03-01 14:03] LABS: Basophils # (A) 0.1 k/uL (0-0.2); Basophils % (A) 1 %; Eosinophils # (A) 0.1 k/uL (0-0.7); Eosinophils % (A) 1 %; HCT 34.8 % (34.0-46.0); HGB 12.1 gm/dL (11.4-16.0); Lymphocytes # (A) 1.2 k/uL (1.0-4.8); Lymphocytes % (A) 14 %; MCH 31.5 pg (25.0-35.0); MCHC 34.8 g/dL (31.0-37.0); MCV 90.5 fL (80.0-100.0); Mean Platelet Volume 5.9; Monocytes # (A) 0.4 k/uL (0-1.0); Monocytes % (A) 5 %; Neutrophils # (A) 6.4 k/uL (1.3-7.7); Neutrophils % (A) 76 %; Platelet Count 392 k/uL (150-450); RBC 3.85 m/uL (3.80-5.40); RDW 13.3 % (11.5-15.5); WBC 8.5 k/uL (3.8-10.6)
[2019-03-01 14:12] LABS: Albumin 4.4 g/dL (3.5-5.0); Potassium 3.1 mmol/L (3.5-5.1); Total Bilirubin 0.5 mg/dL (0.2-1.3); Total Protein 7.2 g/dL (6.3-8.2)
[2019-03-01 14:15] LABS: INR 0.9 (<1.2); Partial Thromboplastin Time 22.6 sec (22.0-30.0); Prothrombin Time 9.6 sec (9.0-12.0)
--- NOTE | 2019-03-01 14:21 | CT ---
EXAMINATION TYPE: CT brain wo con for TPA DATE OF EXAM: 03/01/2019 COMPARISON: 01/16/2015 HISTORY: Neuro deficits. Tingling and numbness CT DLP: mGycm Automated exposure control for dose reduction was used. FINDINGS: Ventricles and sulci appear normal. There is no mass effect nor midline shift. There is no sign of in tracranial hemorrhage. Calvarium is intact. There is no evidence of cerebral edema. IMPRESSION: NEGATIVE CT SCAN OF THE BRAIN. NO CHANGE.
[2019-03-01 14:22] LABS: Creatine Kinase 92 U/L (30-135)
[2019-03-01 14:36] LABS: Creatine Kinase MB 2.8 ng/mL (0.0-2.4); Troponin I <0.012 ng/mL (0.000-0.034)
--- NOTE | 2019-03-01 14:41 | CT ---
EXAMINATION TYPE: CT angio head neck DATE OF EXAM: 03/01/2019 HISTORY: Tingling/numbness in left side body COMPARISON: None CT DLP: 578.5 mGycm. Automated Exposure Control for Dose Reduction was Utilized. TECHNIQUE: CTA scan of the neck is performed with IV Contrast, patient injected with 65 mL of Isovue 370, axial images are obtained, coronal and sagittal reformatted images are reviewed. Three-D recons tructed images are created on an independent workstation and reviewed. FINDINGS: There is normal branching pattern of the great vessels on the aortic arch. There is bilateral arteria l flow in the subclavian arteries. There is thyroid gland atrophy. There is arterial flow in the common internal and external carotid arteries bilaterally. There is art erial flow in both vertebral arteries. There is wide patency of the carotid artery bifurcations. Ther e is no evidence of hemodynamic stenosis. There is no evidence of carotid or vertebral artery aneurys m or dissection. There is arterial flow in the anterior middle and posterior cerebral arteries. There is arterial flow in the vertebrobasilar artery system. There is no evidence of intracranial arterial stenosis. There is no mass effect. There is no sign of aneurysm or neovascularity. There is normal contrast opacifica tion of the venous sinuses. IMPRESSION: Normal CT angiogram of the brain. Normal CT angiogram of the neck.
[2019-03-01] MEDS ORDERED: ASPIRIN 81 MG PO STA (14:43)
[2019-03-01] MEDS ORDERED: ASPIRIN 325 MG TAB PO STA (15:20)
--- NOTE | 2019-03-01 15:24 | XR ---
EXAMINATION TYPE: XR chest 2V DATE OF EXAM: 03/01/2019 COMPARISON: 06/18/2017 HISTORY: Dizziness TECHNIQUE: Frontal and lateral views of the chest are obtained. FINDINGS: There is no heart failure nor confluent pneumonic infiltrate. Costophrenic angles are page r. There are chest leads. Bony thorax is intact. IMPRESSION: No active cardiopulmonary disease. No change.
[2019-03-01] MEDS: POTASSIUM CHLORIDE 10 MEQ in WATER FOR INJECTION 1 100ML.BAG IVPB SCH ×4 (15:29→18:53)
[2019-03-01] MEDS: SODIUM CHLORIDE 0.9% 1,000 ML IV SCH (15:31)
[2019-03-01 16:56] VITALS: RESP 16
[2019-03-01] MEDS ORDERED: traMADol 50 MG TAB PO PRN (17:16)
[2019-03-01] MEDS ORDERED: Magnesium Replacement Protocol 1 EACH MISC MISCELLANE PRN (17:17)
[2019-03-01] MEDS ORDERED: Potassium Replacement Protocol 1 EACH MISC MISCELLANE PRN (17:17)
[2019-03-01 17:18] LABS: VBG PH 7.36 (7.31-7.41)
[2019-03-01] MEDS ORDERED: HYDROcodone/APAP 5-325MG 1 EACH TAB PO PRN (17:18)
[2019-03-01] MEDS ORDERED: ACETAMINOPHEN TAB 500 MG TAB PO PRN (17:18)
[2019-03-01] MEDS ORDERED: ALPRAZolam 0.25 MG TAB PO PRN (17:18)
[2019-03-01] MEDS: DULoxetine HCL 30 MG CAPSULE.DR PO SCH ×2 (17:51→20:24)
[2019-03-01] MEDS: PANTOPRAZOLE 40 MG/10 ML VIAL IVP SCH (18:00)
[2019-03-01] MEDS: HEPARIN SODIUM,PORCINE 5,000 UNIT/ML 1 ML VIAL SQ SCH (20:24)
[2019-03-01] MEDS: SULFAMETHOX-TMP 800-160MG 1 EACH TAB PO SCH (20:24)
[2019-03-01] MEDS ORDERED: cloNIDine HCL 0.1 MG TAB PO SCH (21:00)
[2019-03-01] MEDS ORDERED: NON FORMULARY DRUG (Lansoprazole [Prevacid] 30 MG) PO SCH (21:00)
[2019-03-01] MEDS ORDERED: ATORVASTATIN 40 MG TAB PO SCH (21:00)
[2019-03-01] MEDS ORDERED: FAMOTIDINE 20 MG TAB PO SCH (21:00)
--- NOTE | 2019-03-01 22:03 | HP ---
HISTORY AND PHYSICAL DATE OF SERVICE: 03/01/2019 CHIEF COMPLAINT: Tingling and numbness of the left hand and face. HISTORY OF PRESENT ILLNESS: This 58-year-old woman with a past medical history of multiple medical problems including asthma, fibromyalgia, GERD, hypothyroidism, cholecystectomy, history of mild intermittent asthma, being followed by Dr. 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 The patient spiders but apparently the patient has been treated for a brown recluse spider bite on the posterior part of the left leg in the wound care center and the patient was recently started on Bactrim also. Today the patient is complaining of numbness and tingling starting in the left arm and subsequently spreading to the face and patient came to [facility] and admitted to the hospital for further evaluation. Patient also had an episode of vomiting also. There is no history of fever, rigors or chills. No history of headache, loss of consciousness or seizures at this time. Patient also has history of varicose veins as well. PAST MEDICAL HISTORY: History of asthma, fibromyalgia, GERD, hypothyroidism, cholecystectomy. MEDICATIONS: Prior to admission include home medications are: 1. Ultram 50 mg b.i.d. p.r.n. 2. Catapres 0.1 p.o. q.h.s. 3. Lipitor 40 mg q.h.s. 4. Lamisil 250 mg p.o. daily. 5. Bactrim DS 1 p.o. b.i.d. 6. Synthroid 137 mcg p.o. daily. 7. Prevacid 30 mg p.o. b.i.d. 8. Cymbalta 30 mg p.o. t.i.d. ALLERGIES: IV STEROIDS. FAMILY HISTORY: History of cancer in the family. SOCIAL HISTORY: No history of smoking. No history of alcohol intake. REVIEW OF SYSTEMS: ENT: Mentioned earlier. Cardiovascular no angina or palpitations. Respiration no cough or hemoptysis. GI no nausea or vomiting. no dysuria. CENTRAL NERVOUS SYSTEM: As mentioned earlier. ALLERGY/IMMUNOLOGY: No asthma or hayfever. MUSCULOSKELETAL as mentioned earlier. HEMATOLOGY/ONCOLOGY: No history of anemia. ENDOCRINE: Hypothyroidism. CONSTITUTIONAL: As mentioned earlier. DERMATOLOGY: Negative. RHEUMATOLOGY: Negative. PSYCHIATRIC: As mentioned earlier. PHYSICAL EXAMINATION: Alert and oriented times three. Pulse 91, blood pressure 120/60. Respirations 16. Temperature 98.1. Pulse ox 100 percent on 3 L. HEENT: Conjunctivae normal. Oral mucosa moist. NECK is no jugular venous distention. No carotid bruit. No lymph node enlargement. Cardiovascular system: S1, S2. No S3, no S4. RESPIRATIONS: Breath sounds diminished in the bases. No rhonchi. No crackles. ABDOMEN: Soft, nontender. No mass palpable. LEGS: Multiple varicose veins present status post Achilles tendon surgery on the right leg. Otherwise, spider bite and healing wound on the left foot but tenderness present and swelling also present on the left lower leg. NERVOUS SYSTEM: Higher functions as mentioned earlier. Moves all 4 limbs. No signs of cerebellar dysfunction. No cranial nerve dysfunction. Motor is normal. . LYMPHATICS: No lymph nodes palpable in the neck and axilla. SKIN: As mentioned earlier. JOINTS: No active deforming arthropathy. LABS: CBC within normal limits. Sodium 140. Potassium 3.1, glucose 141. ASSESSMENT: 1. Numbness of the left arm and face, possible acute transient ischemic attack. 2. Recent spider bite, left leg with pain and swelling. 3. Hypokalemia. 4. Increased random blood sugar. 5. History of intermittent asthma, chronic. 6. Fibromyalgia. 7. Gastroesophageal reflux disease. 8. Hypothyroidism. 9. History of cholecystectomy. 10.History of degenerative joint disease. RECOMMENDATIONS AND DISCUSSION: In this 58-year-old woman who presented with multiple medical issues, at this time, we will monitor the patient closely. Continue the current medications, management and symptomatic treatment. We will perform a complete neurovascular workup including 2D echo with carotid Doppler and as well as Neurology consultation. Resume the home medications. Neuro checks. Otherwise, the prognosis is guarded because of multiple complex medical issues and recommend close followup with Dr. Isabelle Ferrell as an outpatient. Dr. Sukhjinder Sainz will follow in the morning. MMODL / IJN: [id number] / MTDD
[2019-03-02 03:45] VITALS: TEMP 98.3
[2019-03-02] MEDS ORDERED: LEVOTHYROXINE 137 MCG TAB PO SCH (06:30)
[2019-03-02 07:07] LABS: HCT 31.3 % (34.0-46.0); HGB 10.6 gm/dL (11.4-16.0); MCH 31.8 pg (25.0-35.0); MCHC 33.7 g/dL (31.0-37.0); MCV 94.3 fL (80.0-100.0); Mean Platelet Volume 5.9; Platelet Count 285 k/uL (150-450); RBC 3.32 m/uL (3.80-5.40); RDW 13.5 % (11.5-15.5); WBC 5.1 k/uL (3.8-10.6)
[2019-03-02 07:26] LABS: Calcium 9.1 mg/dL (8.4-10.2); Magnesium 2.2 mg/dL (1.6-2.3)
[2019-03-02 07:27] LABS: Potassium 4.5 mmol/L (3.5-5.1)
[2019-03-02 07:28] LABS: Basophils # (M) 0.05 k/uL (0-0.2); Lymphocytes # (M) 1.38 k/uL (1.0-4.8); Neutrophils # (M) 3.26 k/uL (1.3-7.7); Neutrophils % (M) 64 %; Nucleated Red Blood Cells 0 /100 WBC (0-0); Total Cells Counted 100
[2019-03-02] MEDS: SULFAMETHOX-TMP 800-160MG 1 EACH TAB PO SCH (08:53)
[2019-03-02] MEDS: DULoxetine HCL 30 MG CAPSULE.DR PO SCH ×2 (08:53→17:07)
[2019-03-02] MEDS: HEPARIN SODIUM,PORCINE 5,000 UNIT/ML 1 ML VIAL SQ SCH (08:53)
[2019-03-02] MEDS: PANTOPRAZOLE 40 MG/10 ML VIAL IVP SCH (08:53)
[2019-03-02] MEDS ORDERED: TERBINAFINE 250 MG TAB PO SCH (09:00)
--- NOTE | 2019-03-02 11:00 | ECHOF ---
Referral Reason:Stroke MEASUREMENTS -------- HEIGHT: 160.0 cm WEIGHT: 86.2 kg BP: IVSd: 1.2 cm (0.6 - 1.1) LVIDd: 3.4 cm (3.9 - 5.3) LVPWd: 1.1 cm (0.6 - 1.1) IVSs: 1.7 cm LVIDs: 2.5 cm LVPWs: 1.6 cm LAESV Index (A-L): 20.27 ml/m Ao Diam: 3.1 cm (2.0 - 3.7) AV Cusp: 1.8 cm (1.5 - 2.6) LA Diam: 2.7 cm (2.7 - 3.8) MV EXCURSION: 21.866 mm (> 18.000) MV EF SLOPE: 80 mm/s (70 - 150) EPSS: 2.2 cm MV E Channing: 0.81 m/s MV DecT: 136 ms MV A Channing: 0.69 m/s MV E/A Ratio: 1.18 RAP: 5.00 mmHg RVSP: 10.82 mmHg TAPSE: 21.87 mm FINDINGS -------- Sinus rhythm. This was a technically good study. The left ventricular size is normal. There is mild concentric left ventricular hypertrophy. Overa ll left ventricular systolic function is normal with, an EF between 55 - 60 %. The diastolic fillin g pattern is normal for the age of the patient 9.84. The right ventricle is normal in size. The right ventricular systolic function is normal. The left atrial size is normal. Normal LA size by volume 22+/-6 ml/m2. The right atrial size is normal. The aortic valve is trileaflet and appears structurally normal. The mitral valve is normal. The mitral valve leaflets are mildly thickened. Mild mitral regurgita tion is present. The tricuspid valve appears structurally normal. Mild tricuspid regurgitation present. Right vent ricular systolic pressure is normal at < 35 mmHg. There is no pulmonic regurgitation present. The aortic root size is normal. The inferior vena cava is mildly dilated. The pulmonary veins were not recorded. There is no pericardial effusion. CONCLUSIONS -------- 1. Sinus rhythm. 2. This was a technically good study. 3. The left ventricular size is normal. 4. There is mild concentric left ventricular hypertrophy. 5. Overall left ventricular systolic function is normal with, an EF between 55 - 60 %. 6. The diastolic filling pattern is normal for the age of the patient 9.84 7. The right ventricle is normal in size. 8. The right ventricular systolic function is normal. 9. The left atrial size is normal. 10. Normal LA size by volume 22+/-6 ml/m2. 11. The right atrial size is normal. 12. The aortic valve is trileaflet and appears structurally normal. 13. The mitral valve is normal. 14. The mitral valve leaflets are mildly thickened. 15. Mild mitral regurgitation is present. 16. The tricuspid valve appears structurally normal. 17. Mild tricuspid regurgitation present. 18. Right ventricular systolic pressure is normal at < 35 mmHg. 19. There is no pulmonic regurgitation present. 20. The aortic root size is normal. 21. The inferior vena cava is mildly dilated. 22. The pulmonary veins were not recorded. 23. There is no pericardial effusion. RENAL DIALYSIS TECHNICIAN: Luciana Gramajo RDCS
[2019-03-02] MEDS ORDERED: ASPIRIN 325 MG TAB PO SCH (12:00)
[2019-03-02] MEDS: SODIUM CHLORIDE 0.9% 1,000 ML IV SCH (12:09)
[2019-03-02] MEDS ORDERED: CEPHALEXIN 500 MG CAP PO SCH ×2 (13:10→21:00)
--- NOTE | 2019-03-02 13:12 | P.CNNES ---
History of Present Illness Consult date: 03/02/19 Requesting physician: Jc Bautista Reason for Consult: Strokelike symptoms History of Present Illness: The patient is a 58-year-old female, who has recent history of suspected spider bite due to black recluse on 02/19/2019. Patient states that she does work outside in the [place]. On 02/19/2019, after working, she came back to home to wash her hands. Suddenly she felt warmth sensation in her feet. As she pulled up her pants, there was blood gushing out of a wound from back of her left calf. Patient showed with the pictures of the extent of the bleed that happened that day. Patient went to the hospital, where she was bandaged. Patient showed me daily pictures of subsequent daily wound size in evolution as taken in her cell phone. Patient was otherwise doing fine. Yesterday she was going to work. Prior to going to work, at 11 AM she wanted to walk on the beach. She was feeling fine, suddenly felt flulike symptoms felt balance was off, her left side of the face became numb. She started throwing up. Also noticed numbness of the left hand from finger tips to the elbow. She felt lightheaded and her was balance off. She decided to come to the hospital. Patient underwent computed tomography scan of the head which revealed no acute process. CT angiogram of head and neck was normal. Patient had an EKG, which showed sinus tachycardia. Patient had a chest x-ray which is normal. No acute cardiopulmonary disease. Patient had a 2-D echo, which revealed normal sinus rhythm. EF is 55-60%. Diastolic filling pressure is normal. Left atrial size normal. Review of Systems As mentioned in detail in HPI. Otherwise patient feels normal. All other review of systems unremarkable. Past Medical History Past Medical History: Asthma, Fibromyalgia, GERD/Reflux, Thyroid Disorder History of Any Multi-Drug Resistant Organisms: None Reported Past Surgical History: Cholecystectomy, Hysterectomy, Orthopedic Surgery, Tonsillectomy Additional Past Surgical History / Comment(s): RT FOOT SX. PAIN CLINIC PROCEDURES. RT KNEE SCOPE. COLONOSCOPY Past Anesthesia/Blood Transfusion Reactions: No Reported Reaction Past Psychological History: No Psychological Hx Reported Smoking Status: Never smoker Past Alcohol Use History: None Reported Past Drug Use History: None Reported - Past Family History Father Family Medical History: Cancer Brother(s) Family Medical History: Cancer Medications and Allergies Home Medications Medication Instructions Recorded Confirmed Type Lansoprazole [Prevacid] 30 mg PO BID 09/10/17 03/01/19 History DULoxetine HCL [Cymbalta] 30 mg PO TID 11/25/17 03/01/19 History Levothyroxine Sodium [Synthroid] 137 mcg PO DAILY 11/25/17 03/01/19 History cloNIDine HCL [Catapres] 0.1 mg PO HS 02/19/19 03/01/19 History Sulfamethox-Tmp 800-160Mg [Bactrim 2 tab PO Q12HR #28 tab 02/23/19 03/01/19 Rx Ds] Terbinafine [LamISIL] 250 mg PO DAILY 02/23/19 03/01/19 History traMADol HCL [Ultram] 50 mg PO BID PRN 02/23/19 03/01/19 History Atorvastatin [Lipitor] 40 mg PO HS 03/01/19 03/01/19 History Allergies Allergy/AdvReac Type Severity Reaction Status Date / Time IV steroids AdvReac TOOK Uncoded 03/01/19 13:55 PROTIEN OUT OF BODY Physical Examination - Vital Signs Vital Signs: Vital Signs Temp Pulse Pulse Resp BP BP Pulse Ox 03/02/19 12:00 89 16 119/65 97 03/02/19 03:35 98.3 F 86 16 101/55 98 03/01/19 23:30 98.4 F 84 16 104/53 96 03/01/19 20:00 98.2 F 95 16 119/57 98 03/01/19 17:00 98.1 F 91 16 128/69 100 03/01/19 16:00 98.1 F 92 89 16 132/72 134/64 100 03/01/19 14:35 97.9 F 95 18 121/61 100 03/01/19 14:20 97.7 F 93 18 125/65 100 03/01/19 14:05 97.9 F 96 18 123/63 100 03/01/19 13:50 97.8 F 101 H 22 129/58 99 03/01/19 13:36 97.5 F L 98 16 100/58 100 Intake and Output 03/01/19 03/02/19 03/02/19 22:59 06:59 14:59 Intake Total 840 240 Balance 840 240 Intake: Amount of Fluid Infused ( 600 ml) Oral 240 240 On examination patient is a middle aged female, very pleasant in no acute distress. Her speech and language functions are normal. On cranial examination pupils are round and reactive to light visual jay are full on confrontation. Patient says that she has significant decreased vision out of the right eye since . Her face is symmetric and tongue protrudes the midline. Palatal elevation and sensation normal. On muscle strength testing patient has mild left drift but no pronation. The strength however is normal in arms and legs distally and proximally. It at 7+ and plantars downgoing sensory touch is equal. No ataxia for [id number] testing tone and bulk of muscles normal. Gait normal. No obvious bruit or murmur. Results Patient's liver functions are normal. CRP 19.8, hemoglobin A1c 6.8. Total cholesterol is 147, LDL 72, HDL 59. - Laboratory Findings CBC and BMP: 03/02/19 06:42 03/02/19 06:42 Abnormal Lab Findings: Abnormal Labs 03/01/19 03/01/19 03/01/19 13:50 13:50 13:54 RBC Hgb Hct Potassium 3.1 L Carbon Dioxide 16 L Glucose 141 H POC Glucose (mg/dL) 141 H Alkaline Phosphatase 167 H CK-MB (CK-2) 2.8 H 03/02/19 03/02/19 06:42 06:42 RBC 3.32 L Hgb 10.6 L Hct 31.3 L Potassium Carbon Dioxide Glucose 103 H POC Glucose (mg/dL) Alkaline Phosphatase CK-MB (CK-2) Assessment and Plan Assessment: * [place] [facility] [place] [facility] [place] * New onset numbness tingling of the left facial brachial region with dizziness, imbalance. Possible TIA. * New onset diabetes. Patient states that she has history of borderline diabetes the past. Plan: * Agree with starting aspirin. Patient was not taking any antiplatelet medication at home. * May change to low-dose statins, as her lipids are fairly controlled. * May need to address abnormal hemoglobin A1c, suggest new onset diabetes. * We will check Lyme titer. * Patient is back to baseline. Further brain imaging will not change the management. Patient had normal 2-D echo and CTA of head and neck. * Neurologically cleared for discharge.
[2019-03-02 14:51] VITALS: BP 116/58; PULSE 96
--- NOTE | 2019-03-02 16:54 | MR ---
EXAMINATION TYPE: MR brain wo/w con DATE OF EXAM: 03/02/2019 COMPARISON: MRI brain September 19, 2016. CT brain yesterday. HISTORY: Left sided tingling and numbness TECHNIQUE: Multiplanar, multisequence images of the brain and brainstem is performed without and with IV contras t, utilizing 7.5 mL intravenous Gadavist . FINDINGS: Diffusion weighted images demonstrate no evidence of a recent infarct or other diffusion ab normality. There is no worrisome extra-axial fluid collection. There is mild ventricular and sulcal prominence. Few scattered small foci of T2 hyperintensity throughout the white matter are redemonstra jayy bilaterally. Midline structures demonstrate normal morphology. The craniocervical junction appears within normal limits. Post contrast images demonstrate no abnormal enhancement. The dural venous sinuses appear pa tent. The visualized sinuses are clear and the globes are intact. Stable oval left frontal bony danielle rial T2 hyperintense lesion axial image 23 presumed benign such as enchondroma IMPRESSION: No evidence of a recent infarct. Mild diffuse cerebral atrophy and chronic small vessel i schemic changes redemonstrated.
[2019-03-02 22:55] LABS: Hemoglobin A1C 6.6 % (4.0-6.0)
[2019-03-03] MEDS ORDERED: PANTOPRAZOLE 40 MG TABLET PO SCH (07:30)
[2019-03-03 13:12] LABS: Lyme IgG/IgM 0.03 Index; Lyme IgG/IgM Interp NEGATIVE (NEGATIVE)
--- NOTE | 2019-03-05 23:36 | P.DS ---
Providers Date of admission: 03/01/19 15:20 Expected date of discharge: 03/02/19 Attending physician: Sukhjinder Sainz MD Consults: 03/01/19 15:21 Consult Physician Routine Consulting Provider: Antonia Clayton Consult Reason/Comments: stroke like symptoms Do you want consulting provider notified?: Yes Primary care physician: Isabelle Ferrell [facility] Course: Joyce Vega is a 58 yo F with PMH of complicated migraine, HTN, HLD who presented to the ED with transient facial numbness. she notes that she had a spider bite about a week ago and was seen in the office and treated with bactrim. the day prior to admission, pt noticed L arm numbness which spread to her face so came in for evaluation. In he ED, CT was negative and she had no focal deficits. She was admitted to medicine and Neurology was consulted. On day 2 of hospitalization her symptoms had completely resolved. She was cleared by neurology and is discharged to follow up with PCP. General: well nourished, well developed, NAD. Vitals reviewed Eyes: PERRL, EOMI, conjunctiva normal HENT: normocephalic, mucus membranes moist Neck: supple, no JVD Lungs: normal respiratory effort, no wheezes or rales CV: Regular rate and rhythm, no murmur. Peripheral pulses 2+ Neuro: CN II-XII intact, str 5/5 and symmetric Patient Condition at Discharge: Stable Plan - Discharge Summary Discharge Rx Participant: No New Discharge Prescriptions: New Acetaminophen Tab [Tylenol] 500 mg PO Q6HR PRN tab PRN Reason: Fever and/ or Mild Pain Cephalexin [Keflex] 500 mg PO TID 5 Days #15 cap Aspirin EC [Ecotrin Low Dose] 81 mg PO DAILY #30 tablet.dr Continue Lansoprazole [Prevacid] 30 mg PO BID Levothyroxine Sodium [Synthroid] 137 mcg PO DAILY DULoxetine HCL [Cymbalta] 30 mg PO TID cloNIDine HCL [Catapres] 0.1 mg PO HS traMADol HCL [Ultram] 50 mg PO BID PRN PRN Reason: Pain Terbinafine [LamISIL] 250 mg PO DAILY Atorvastatin [Lipitor] 40 mg PO HS Discontinued Sulfamethox-Tmp 800-160Mg [Bactrim Ds] 2 tab PO Q12HR #28 tab Discharge Medication List Lansoprazole [Prevacid] 30 mg PO BID 09/10/17 [History] DULoxetine HCL [Cymbalta] 30 mg PO TID 11/25/17 [History] Levothyroxine Sodium [Synthroid] 137 mcg PO DAILY 11/25/17 [History] cloNIDine HCL [Catapres] 0.1 mg PO HS 02/19/19 [History] Terbinafine [LamISIL] 250 mg PO DAILY 02/23/19 [History] traMADol HCL [Ultram] 50 mg PO BID PRN 02/23/19 [History] Atorvastatin [Lipitor] 40 mg PO HS 03/01/19 [History] Acetaminophen Tab [Tylenol] 500 mg PO Q6HR PRN tab 03/02/19 [Rx] Aspirin EC [Ecotrin Low Dose] 81 mg PO DAILY #30 tablet.dr 03/02/19 [Rx] Cephalexin [Keflex] 500 mg PO TID 5 Days #15 cap 03/02/19 [Rx] Follow up Appointment(s)/Referral(s): Chepe Prather MD [STAFF PHYSICIAN] - 03/12/19 10:15 am (Neurologist. -cancelled per pt request on 03/04/2019) Chidi Hightower DO [STAFF PHYSICIAN] - 1 Week (Please follow up with your regular neurologist. ) Isabelle Ferrell DO [Primary Care Provider] - 03/04/19 10:15 am (With Renetta Olson) Ambulatory/Diagnostic Orders: Complete Blood Count w/diff [LAB.AMB] Time Frame: 3 Days, Location: None Selected Patient Instructions/Handouts: Transient Ischemic Attack (DC), Brown Recluse Spider Bite (DC), Heart Healthy Diet (DC) Activity/Diet/Wound Care/Special Instructions: Hemoglobin A1c ordered, pending, final results to be faxed to PCP. Discharge Disposition: HOME SELF-CARE
== END 2019-03-02 18:02 | disposition home or self-care (01) ==
LOC: EC 13:30 → INTOOBSV 15:20 → UNDOADMIN 15:20 → 3SCARD 15:20 → UNDODISIN 03-02 18:02
PROVIDERS: ADMIT Family Medicine; ATTEND Family Medicine
DX: R20.0 Anesthesia of skin (principal); R20.2 Paresthesia of skin; R42 Dizziness and giddiness; R00.0 Tachycardia, unspecified; R26.89 Other abnormalities of gait and mobility; R11.2 Nausea with vomiting, unspecified; T63.331A Toxic effect of venom of brown recluse spider, accidental (unintentional), initial encounter; E87.6 Hypokalemia; E87.2 Acidosis; E03.9 Hypothyroidism, unspecified; E11.9 Type 2 diabetes mellitus without complications; E78.5 Hyperlipidemia, unspecified; I10 Essential (primary) hypertension; J45.20 Mild intermittent asthma, uncomplicated; K21.9 Gastro-esophageal reflux disease without esophagitis; M79.7 Fibromyalgia; Z79.890 Hormone replacement therapy; Z79.899 Other long term (current) drug therapy; Z80.9 Family history of malignant neoplasm, unspecified; Z86.73 Personal history of transient ischemic attack (TIA), and cerebral infarction without residual deficits; Z90.49 Acquired absence of other specified parts of digestive tract; Z90.710 Acquired absence of both cervix and uterus; I83.90 Asymptomatic varicose veins of unspecified lower extremity; Z88.8 Allergy status to other drugs, medicaments and biological substances; M19.90 Unspecified osteoarthritis, unspecified site; Z79.891 Long term (current) use of opiate analgesic
CPT/HCPCS: 96376; 96366 ×2; 96372 ×2; 96375 ×2; 96365; 99285; 36415; 93005; 93306; 97162; 97165; 80061; 80053; 80048; 82550; 82553; 82803; 83605; 83735; 84484; 85025 ×2; 85610; 85730; 86618; 83036; 71046; 70496; 70450; 70498; 70553; G0378 ×2; J1644 ×2; J2405; J3480; C9113 ×2; A9585; Q9967

== ENCOUNTER → 2019-03-04 | Outpatient (CLI) | payer BC ==
--- NOTE | 2019-03-04 15:53 | US ---
LOWER EXTREMITY VENOUS INSUFFICIENCY CLINICAL HISTORY: I83.022 Varicose veins of left lower extremity. SIDE PERFORMED: Bilateral 1) Color flow is present and patency is documented in the following vessels. No DVT or SVT is noted . EIV Common Femoral Vein Deep Femoral Vein Femoral Vein Popliteal Vein Proximal Calf Veins Greater Saph Vein Upper Small Saph Vein 2) There is venous reflux noted at the following venous levels: none IMPRESSION: 1. Left lower extremity without evidence of deep venous thrombosis or venous reflux.
== END | disposition home or self-care (01) ==
LOC: RADUSWWP 08:31
PROVIDERS: ATTEND Family Medicine
DX: I83.022 Varicose veins of left lower extremity with ulcer of calf (principal); I87.2 Venous insufficiency (chronic) (peripheral); L03.115 Cellulitis of right lower limb; E11.9 Type 2 diabetes mellitus without complications
CPT/HCPCS: 93923; 93970

== ENCOUNTER → 2019-08-07 | Outpatient (CLI) | payer BC ==
--- NOTE | 2019-08-07 12:21 | MR ---
EXAMINATION TYPE: MR brain wo/w con DATE OF EXAM: 08/07/2019 COMPARISON: MRA brain dated 03/02/2019 and MRA brain dated 09/19/2016 HISTORY: Ocular pain, Light sensitivity TECHNIQUE: Multiplanar, multisequence images of the brain and brainstem is performed without and with IV contras t, utilizing 7.5 mL intravenous Gadavist . FINDINGS: Diffusion weighted images demonstrate no evidence of a recent infarct or other diffusion ab normality. There is no extra-axial fluid collection. Few scattered foci of T2/FLAIR hyperintensity i n the periventricular and subcortical white matter are unchanged from the prior measuring up to 3 mm. The ventricular system and cisternal spaces are normal in size and appearance. The brain volume is age appropriate. Midline structures demonstrate normal morphology. The craniocervical junction appears within normal limits. Post contrast images demonstrate no abnormal enhancement. The dural venous sinuses appear pa tent. The visualized sinuses demonstrate mild mucosal thickening in the ethmoid sinuses. Remaining pa ranasal sinuses and mastoid air cells are well aerated. The left frontal calvarial T2 hyperintense an d proximally 1.0 cm mass is again stable favoring a benign etiology such as hemangioma or enchondroma . There is very slight undulation of the right optic nerve. There is also some flattening of the right posterior lobe on axial T2 image 10. Slightly pronounced amount of perineural fluid surrounding the o ptic nerves. Partially empty sella turcica. No herniation of the cerebellar tonsils. IMPRESSION: 1. Constellation of findings concerning for increased intraocular pressure on the right. Correlate wi th ophthalmologic exam to exclude papilledema. Lumbar puncture with opening pressure could also be co nsidered. 2. No MR evidence of acute infarct, midline shift or mass effect. 3. Mild burden nonspecific white matter change is redemonstrated, unchanged from the prior of 019, most commonly on the basis of chronic microangiopathy.
== END | disposition home or self-care (01) ==
LOC: RADMRIMAIN 10:44
PROVIDERS: ATTEND Ophthalmology
DX: R90.82 White matter disease, unspecified (principal); I73.9 Peripheral vascular disease, unspecified; H40.051 Ocular hypertension, right eye; H53.60 Unspecified night blindness
CPT/HCPCS: 70553; A9585

== ENCOUNTER → 2019-09-16 | Outpatient (CLI) | payer BC ==
--- NOTE | 2019-09-16 13:41 | MR ---
EXAMINATION TYPE: MR venography head wo/w con DATE OF EXAM: 09/16/2019 COMPARISON: MRI brain September 19, 2016. CT brain March 01, 2019. HISTORY: Rt eye pain/pressure, migraines, pseudotumor cerebri CONTRAST: Standard multiplanar, multisequence MRI departmental protocol utilizing 7.5 mL intravenous Gadavist g adolinium contrast. 2-D and 3-D reconstructed images created on an independent workstation and revie wed. MRV imaging of the head focusing on straining cerebrovascular system. FINDINGS: There is good visualization of patent vein of Igor along with superior and inferior sagitt al sinuses. Straight sinus somewhat small caliber but presumed patent. Patent bilateral transverse si nuses draining into sigmoid sinuses and proximal internal jugular veins. IMPRESSION: No convincing evidence for suspicious acute deep cerebral vein thrombosis.
== END | disposition home or self-care (01) ==
LOC: RADMRIMAIN 12:18
PROVIDERS: ATTEND Ophthalmology
DX: G93.2 Benign intracranial hypertension (principal); H57.13 Ocular pain, bilateral
CPT/HCPCS: 70546; A9585

== ENCOUNTER → 2021-03-08 | Outpatient (CLI) | payer BC ==
--- NOTE | 2021-03-08 13:04 | MR ---
EXAMINATION TYPE: MR brain/orbits wo/w con DATE OF EXAM: 03/08/2021 COMPARISON: HISTORY: Abnormal MRI, Pseudotumor Cerebri, loss of vision, migraines TECHNIQUE: Multiplanar, multisequence images of the brain and brainstem is performed without and with IV contras t, utilizing 8 mL intravenous Gadavist . 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 There is no extra-axial f luid collection or significant white matter signal abnormality, mild increased signal on inversion re covery T2-weighted sequences within the amaya is noted prior. The ventricular system and cisternal sp aces are normal in size and appearance. The brain volume is age appropriate. Cerebellopontine angles are unremarkable for muscle questionable enlargement of Meckel cave. Orbits show mildly prominent cerebrospinal fluid about the optic nerves and there is somewhat upward tortuosity seen of the optic nerves on sagittal view. Question some intraocular protrusion of the opt ic nerve head. Midline structures demonstrate stable morphology, partially empty sella is again noted. The cranioce rvical junction appears within normal limits. Post contrast images demonstrate no abnormal enhanceme nt. The dural venous sinuses appear patent. The visualized sinuses are clear and the globes are intac t. IMPRESSION: Findings described above can be seen with pseudotumor cerebri. Additional findings above.
== END | disposition home or self-care (01) ==
LOC: RADMRIMAIN 09:07
PROVIDERS: ATTEND Family Medicine
DX: G43.909 Migraine, unspecified, not intractable, without status migrainosus (principal); G93.2 Benign intracranial hypertension; R93.0 Abnormal findings on diagnostic imaging of skull and head, not elsewhere classified
CPT/HCPCS: 70543; 70553; A9585